=== PATIENT | female | born 1970 | race Two or more races ===

== ENCOUNTER 2016-11-02 22:40 | Emergency (ER) | payer OTHER ==
[~2016-11-02] VITALS: Ht 167.6 cm; Wt 71.2 kg
[~2016-11-02 22:40] MED LIST: BACTRIM DS TABL1 TA1 PO; FLEXERIL10 M1 PO; KEFLEX500 M1 PO; KEFLEX500 MG PO; NO MEDICATIONS; PAIN RELIEF500 MG; PREDNISONE10 MG PO; TYLENOL #3 PO; VICODIN 5/1 TAB 5/50; VICODIN 5/1 TAB 5/50 PO
[2016-11-02] MEDS ORDERED: NO MEDICATIONS (22:51)
[2016-11-02] MEDS ORDERED: CIPRO PO (23:15)
[2016-11-02] MEDS ORDERED: KEFLEX500 MG PO (23:15)
== END 2016-11-02 23:21 | disposition home or self-care (01) ==
LOC: SED 22:40
DX: S90.812A Abrasion, left foot, initial encounter (principal); F17.200 Nicotine dependence, unspecified, uncomplicated; Z23 Encounter for immunization; W45.0XXA Nail entering through skin, initial encounter; Y92.69 Other specified industrial and construction area as the place of occurrence of the external cause; Y99.0 Civilian activity done for income or pay
CPT/HCPCS: 90471; 90715; 99283